=== PATIENT | female | born 1990 | race Caucasian/White ===

== ENCOUNTER → 2019-12-04 21:25 | Observation (INO) | END | disposition home or self-care (01) | LOC: 1NENULAB | PROVIDERS: ADMIT Obstetrics & Gynecology; ATTEND Obstetrics & Gynecology ==

== ENCOUNTER 2019-12-08 05:53 | Inpatient (IN) ==
[2019-12-08] MEDS ORDERED: Metoclopramide 10 MG/2 ML VIAL IVP PRN (05:58)
[2019-12-08] MEDS ORDERED: Lidocaine 1% 20 ML MDV INFILT PRN (05:58)
[2019-12-08] MEDS ORDERED: *HR* FentaNYL (PF) 100 MCG/2 ML VIAL IVP PRN (05:58)
[2019-12-08] MEDS ORDERED: Famotidine 20 MG/2 ML VIAL IVP PRN (05:58)
[2019-12-08] MEDS ORDERED: Naloxone 0.4 MG/ML INJ IVP PRN (05:58)
[2019-12-08] MEDS ORDERED: miSOPROStoL 25 MCG TABLET PO PRN (05:58)
[2019-12-08] MEDS ORDERED: Oxytocin 20 units/ LR 1000 mL 20 UNIT/1,000 ML BAG IVC ONE (06:10)
[2019-12-08] MEDS ORDERED: Oxytocin 20 units/ LR 1000 mL 20 UNIT/1,000 ML BAG IVC SCH ×2 (06:15→22:28)
[2019-12-08] MEDS: Ringers Solution, Lactated 1,000 ML IVC SCH ×2 (06:25→14:16)
[2019-12-08 06:44] LABS: Basophils % 0.3 %; Eosinophils # 0.2 K/mcL (0.0-0.6); Eosinophils % 1.4 %; Hematocrit 42.7 % (35.3-44.9); Hemoglobin 13.7 g/dL (11.5-15.4); Immature Granulocytes % 1.2 % (0-4); Lymphocytes # 2.9 K/mcL (0.6-4.6); Lymphocytes % 22.6 %; Mean Corpuscular HGB Conc 32.1 g/dL (31.6-35.5); Mean Corpuscular Hemoglobin 27.3 pg (28.0-33.3); Mean Corpuscular Volume 85.1 fL (83.0-100.0); Mean Platelet Volume 10.4 fL (9.4-12.4); Monocytes % 7.9 %; Neutrophils # 8.6 K/mcL (1.6-8.9); Platelet Count 190 K/mcL (140-400); Red Blood Count 5.02 M/mcL (3.82-4.97); Red Cell Distribution Width 14.2 % (11.5-14.5); Segmented Neutrophils % 66.6 %; White Blood Count 12.9 K/mcL (4.3-11.1)
[2019-12-08] MEDS ORDERED: EPHEDrine 50 MG/ML VIAL IVP PRN (08:10)
[2019-12-08] MEDS ORDERED: Epidural Premix (fent/bupiv) 110 ML EP ONE (08:13)
[2019-12-08] MEDS ORDERED: Epidural Premix (fent/bupiv) 110 ML EP SCH (08:15)
[2019-12-08 08:51] LABS: Amphetamine Screen,Urine Negative ng/mL (Cutoff=1000); Barbiturate Screen,Urine Negative ng/mL (Cutoff=200); Benzodiazepines Screen,Urine Negative ng/mL (Cutoff=200); Cannabinoid Screen,Urine Negative ng/mL (Cutoff = 50); Cocaine Screen,Urine Negative ng/mL (Cutoff= 300); Opiate Screen,Urine Negative ng/mL (Cutoff=300); Phencyclidine Screen,Urine Negative ng/mL (Cutoff=25)
[2019-12-08] MEDS ORDERED: Ondansetron 4 MG/2 ML VIAL IVP PRN (13:54)
[2019-12-08] MEDS ORDERED: Rho Immune Globulin 1,500 UNIT SYRINGE IM PRN (22:28)
[2019-12-08] MEDS ORDERED: Measles/Mumps/Rubella Vacc 0.5 ML VIAL SQ PRN (22:28)
[2019-12-08] MEDS: Acetaminophen 325 MG TABLET PO PRN (22:54)
[2019-12-09] MEDS: Ibuprofen 600 MG TABLET PO PRN ×3 (01:02→14:25)
[2019-12-09] MEDS: Acetaminophen 325 MG TABLET PO PRN (05:21)
[2019-12-09 05:45] VITALS: BP 117/69
[2019-12-09 06:53] LABS: Basophils % 0.2 %; Eosinophils # 0.1 K/mcL (0.0-0.6); Eosinophils % 0.9 %; Hematocrit 34.1 % (35.3-44.9); Immature Granulocytes % 0.7 % (0-4); Lymphocytes # 2.5 K/mcL (0.6-4.6); Lymphocytes % 15.6 %; Mean Corpuscular HGB Conc 32.3 g/dL (31.6-35.5); Mean Corpuscular Hemoglobin 27.4 pg (28.0-33.3); Mean Corpuscular Volume 84.8 fL (83.0-100.0); Mean Platelet Volume 10.6 fL (9.4-12.4); Monocytes # 1.3 K/mcL (0.0-1.3); Monocytes % 8.4 %; Neutrophils # 11.8 K/mcL (1.6-8.9); Platelet Count 160 K/mcL (140-400); Red Blood Count 4.02 M/mcL (3.82-4.97); Red Cell Distribution Width 14.1 % (11.5-14.5); Segmented Neutrophils % 74.2 %; White Blood Count 15.9 K/mcL (4.3-11.1)
[2019-12-09] MEDS ORDERED: FLUoxetine HCl 10 MG CAPSULE PO SCH (09:00)
[2019-12-09] MEDS ORDERED: Prenatal Vit/FA 1 EACH TABLET PO SCH (09:00)
== END 2019-12-09 14:30 | disposition home or self-care (01) | DRG 807 ==
LOC: 1NENULAB 05:53 → 1NENUOBS 21:38
PROVIDERS: ADMIT Obstetrics & Gynecology; ATTEND Obstetrics & Gynecology